=== PATIENT | male | born 1985 | race Hispanic/Latino ===

== ENCOUNTER 2019-02-22 16:47 | Emergency (ER) | payer OTHER ==
[2019-02-22] MEDS ORDERED: NORCO 10/325 PO ONE (16:54)
--- NOTE | 2019-02-22 17:01 | Emergency Department Report ---
Blank Doc - Documentation Documentation: This is a 33-year-old male that presents with left arm pain. Stated while wor misa in a car a transmission fell onto his hand. This initial assessment/diagnostic orders/clinical plan/treatment(s) is/are subject to change based on patient's health status, clinical progression and re- assessment by fellow clinical providers in the ED. Further treatment and workup at subsequent clinical providers discretion. Patient/guardians urged not to elope from the ED as their condition may be serious if not clinically assessed and managed. Initial orders include: 1- Patient sent to [facility] for further evaluation and treatment 2- xrays 3- norco and was instructed not to operate as this causes drowsiness.
[2019-02-22] MEDS ORDERED: DILAUDID IM ONE ×2 (18:03→18:35)
--- NOTE | 2019-02-22 18:07 | XRay Report ---
PROCEDURE: XR FOREARM LT TECHNIQUE: AP and lateral radiographs of the left forearm were performed. HISTORY: post trauma arm pain COMPARISONS: None. FINDINGS: No acute fracture. Old ulnar styloid process fracture is seen. No dislocation. Normal mineralization. No soft tissue swelling. IMPRESSION: No acute left forearm abnormality. This document is electronically signed by Rosemary Johnson., February 22 2019 06:05:22 PM ET
--- NOTE | 2019-02-22 18:09 | XRay Report ---
PROCEDURE: XR HUMERUS 2+V LT TECHNIQUE: AP and lateral views of the left humerus were performed. HISTORY: post trauma arm pain COMPARISONS: None. FINDINGS: No fracture. No dislocation. Normal mineralization. No soft tissue swelling. IMPRESSION: No acute left humerus abnormality. This document is electronically signed by Rosemary Johnson., February 22 2019 06:07:09 PM ET
--- NOTE | 2019-02-22 19:48 | Emergency Department Report ---
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 He has sharp burning pain, on his left elbow, anteriorly and posteriorly. He describes nonspecific distal forearm numbness. This pain is sharp, increases with palpation and decreases with rest. It also decreased with hydromorphone. He reports he is up-to-date with tetanus vaccinations. He denies other injuries, denies other complaints. Complaint: Injury to:: left, arm, elbow -: Sudden Other Extremity Injury: Elbow: Left, Arm: Left Other Injuries: none Handedness: right Place: home, other (patient was doing work on his car) Improves With: other Worsens With: other Context: direct blow, crush, injury Associated Symptoms: numbness - Related Data Previous Rx's Medication Instructions Recorded Last Taken Type Acetaminophen [Tylenol Arthritis] 650 mg PO Q6HR PRN #30 tablet.er 02/22/19 Unknown Rx Ibuprofen [Motrin] 600 mg PO Q8H PRN #30 tablet 02/22/19 Unknown Rx oxyCODONE [Roxicodone] 5 mg PO Q6HR PRN #15 tablet 02/22/19 Unknown Rx Allergies Allergy/AdvReac Type Severity Reaction Status Date / Time No Known Allergies Allergy Unverified 08/07/14 12:58 ED Review of Systems ROS: Stated complaint: [place] FELL ON ARM Other details as noted in HPI Constitutional: denies: fever Eyes: denies: eye discharge ENT: denies: epistaxis Respiratory: denies: cough Cardiovascular: denies: chest pain Gastrointestinal: denies: vomiting Musculoskeletal: arthralgia, myalgia Skin: denies: lesions Neurological: numbness ED Past Medical Hx - Past Medical History Previous Medical History?: No - Surgical History Past Surgical History?: No - Social History Smoking Status: Never Smoker Substance Use Type: None - Medications Home Medications: Home Medications Medication Instructions Recorded Confirmed Last Taken Type Acetaminophen [Tylenol Arthritis] 650 mg PO Q6HR PRN #30 tablet.er 02/22/19 Unknown Rx Ibuprofen [Motrin] 600 mg PO Q8H PRN #30 tablet 02/22/19 Unknown Rx oxyCODONE [Roxicodone] 5 mg PO Q6HR PRN #15 tablet 02/22/19 Unknown Rx ED Physical Exam - General Limitations: Physical Limitation General appearance: alert, in no apparent distress, anxious, in distress - Head Head exam: Present: atraumatic, normocephalic - Eye Eye exam: Present: normal appearance, EOMI. Absent: nystagmus - ENT ENT exam: Present: normal exam, normal orophraynx, mucous membranes moist, normal external ear exam - Neck Neck exam: Present: normal inspection, full ROM - Respiratory Respiratory exam: Present: normal lung sounds bilaterally. Absent: respiratory distress - Cardiovascular Cardiovascular Exam: Present: regular rate, normal rhythm, normal heart sounds. Absent: bradycardia, tachycardia, irregular rhythm, systolic murmur, diastolic murmur, rubs, gallop - GI/Abdominal GI/Abdominal exam: Present: soft. Absent: distended, tenderness, guarding, rebound, rigid, pulsatile mass - Rectal Rectal exam: Present: deferred - Extremities Exam Extremities exam: Present: normal inspection (abrasions noted to the left upper extremity, no obvious lacerations.), tenderness (there is left olecranon tenderness, and left medial and lateral elbow tenderness. Muscular compartments are soft in the left upper extremity.), other (2+ pulses noted in the left upper extremity. Thumb opposition intact in the left upper extremity, left wrist extension, flexion, circumduction intact. Sensation intact in the left deltoid, median, radial, ulnar distribution. Full range of motion of the left wrist. Sensation intact to light touch in the left upper extremity.) - Back Exam Back exam: Present: normal inspection, full ROM - Neurological Exam Neurological exam: Present: alert, other (Extraocular movements intact. Tongue midline. No facial droop. Facial sensation intact to light touch in the V1, V2, V3 distribution bilaterally. 5 and 5 strength in 4 extremities.. Sensation is intact to light touch in 4 extremities.) - Psychiatric Psychiatric exam: Present: normal affect, normal mood - Skin Skin exam: Present: warm, dry, intact, normal color. Absent: rash ED Course Vital Signs 02/22/19 02/22/19 02/22/19 16:52 17:34 18:45 Temperature 98.1 F 97.7 F Pulse Rate 62 57 L 52 L Respiratory 16 16 16 Rate Blood Pressure 142/120 Blood Pressure 117/76 112/76 [Right] O2 Sat by Pulse 100 99 Oximetry ED Medical Decision Making - Lab Data Vital Signs 02/22/19 02/22/19 02/22/19 16:52 17:34 18:45 Temperature 98.1 F 97.7 F Pulse Rate 62 57 L 52 L Respiratory 16 16 16 Rate Blood Pressure 142/120 Blood Pressure 117/76 112/76 [Right] O2 Sat by Pulse 100 99 Oximetry - Radiology Data Radiology results: report reviewed, image reviewed X-ray of the left humerus, left forearm, negative for fracture, dislocation or foreign body. - Medical Decision Making Differential diagnosis, including but not limited to: Fracture, dislocation, c bowens injury, sprain, strain, neuropraxia Assessment and plan: 33-year-old gentleman status post blunt crush injury to left forearm. He is distally neurovascularly intact. Thumb opposition and rang e of motion of the wrist and left fingers appear to be intact. He is somewhat tender on the left elbow, muscular compartments are soft, sensation intact to the deltoid, median, radial, ulnar distribution, and no fracture or dislocation noted on plain films of the x-rays. Advised patient and family that he may have ligamentous and/or soft tissue injury. Nursing team to copiously and thoroughly wash the left upper extremity, he will have a left upper extremity splints placed, and he is instructed to follow up with outpatient orthopedics for further evaluation and management. Patient verbalized understanding. Critical care attestation.: If time is entered above; I have spent that time in minutes in the direct care of this critically ill patient, excluding procedure time. ED Disposition Clinical Impression: Left arm pain Disposition: DC-01 TO HOME OR SELFCARE Is pt being admited?: No Does the pt Need Aspirin: No Condition: Good Instructions: Paresthesia (ED), Arthralgia (ED) Additional Instructions: Rest, avoid heavy lifting, avoid strenuous physical activities. Range of motion in left wrist as tolerated, however, keep the left elbow in a splint, sling, until the patient follows up with orthopedics. It is possible that the patient may have soft tissue, ligamentous injury, not visualized or detected in the emergency room. This will require close outpatient follow-up with an orthopedic or hand specialist. Therefore, please follow-up with an orthopedic or hand specialist within the next 5 days. Take the pain medication as needed/directed. If taking the oxycodone, do not drive, consume alcohol, or make important decisions. The left hand can be covered with the plastic bag while bathing. However, make certain to wash the hands at least once every 24 hours. Return to the emergency room right away with new pain, worsened pain, migration of pain, extremity weakness, inability to move the fingers, or new, worsening or different symptoms not present on the initial ER evaluation. Referrals: VANESSA SANTIAGO MD [Staff Physician] - 3-5 Days [facility] [Provider Group] - 3-5 Days
[2019-02-22] MEDS ORDERED: ZOFRAN ODT ONE (20:06)
[2019-02-22] MEDS ORDERED: ZOFRAN ODT PO ONE (20:10)
[2019-02-22 20:27] VITALS: BP 113/75
== END 2019-02-22 20:58 | disposition home or self-care (01) ==
LOC: ED 16:47
DX: M79.602 Pain in left arm (principal); M25.522 Pain in left elbow; R20.0 Anesthesia of skin
CPT/HCPCS: 29105; 73060; 73090; 96372; 99284; J1170; Q0162